=== PATIENT | female | born 1975 | race Caucasian/White ===

== ENCOUNTER 2021-11-12 22:50 | Emergency (ER) | payer OTHER ==
[2021-11-12 23:42] LABS: BASOPHIL 0.4 % (0-2); EOSINOPHIL 1.3 % (0-5); HGB 14.4 g/dl (12.5-16.0); LYMPHOCYTE 28.6 % (15-48); MCH 31.4 pg (25.0-31.0); MCHC 33.5 g/dL (32.0-36.0); MCV 93.9 fL (78.0-100.0); MONOCYTE 5.1 % (0-12); MPV 9.8 fL (6.0-9.5); NEUTROPHIL 64.2 % (41-80); NRBC 0; PLT 267 K/uL (150-400); RBC 4.58 M/uL (4.20-5.40); RDW 12.3 % (11.5-14.0); WBC 5.3 K/uL (4.0-10.5)
[2021-11-12 23:59] LABS: ALBUMIN 3.7 g/dL (3.4-5.0); BILIRUBIN - TOTAL 0.2 mg/dL (0.2-1.0); BUN/CREAT RATIO (CALC) 16.2 RATIO; CREATININE 0.8 mg/dL (0.51-0.95); GLOBULIN (CALCULATION) 3.4 g/dL; POTASSIUM 3.2 mmol/L (3.5-5.1); TOTAL PROTEIN 7.1 g/dL (6.4-8.2)
[2021-11-13 00:04] LABS: INFLUENZA A NAA NEGATIVE (NEGATIVE)
[2021-11-13 00:09] LABS: CORONAVIRUS 2019 SARS-COV-2 POSITIVE (NEGATIVE)
[2021-11-13] MEDS ORDERED: VENTOLIN HFA IN18 GM INH (01:54)
[2021-11-13] MEDS ORDERED: PULMICORT FLE180 MCG INH (01:54)
[2021-11-13] MEDS ORDERED: TESSALON PERLE100 MG PO (02:05)
== END 2021-11-13 02:25 | disposition home or self-care (01) ==
LOC: FER 22:50
PROVIDERS: Emergency Medicine Emergency Medical Services
DX: U07.1 COVID-19 (principal); F17.200 Nicotine dependence, unspecified, uncomplicated
CPT/HCPCS: 36415; 71045; 80053; 82728; 83605; 84484; 84703; 85025; 85379; 93005; 94640; 94664; 94760; J7030; U0002